=== PATIENT | female | born 2000 | race Caucasian/White ===

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

== ENCOUNTER 2021-12-09 11:27 | Emergency (ER) | payer OTHER ==
[2021-12-09 11:41] VITALS: BP 111/68; PULSE 83; TEMP 98.4; BMI 23.0
[2021-12-09] MEDS ORDERED: RALTEGRAVIR POTASSIUM 400 MG TAB PO ONE (12:14)
[2021-12-09] MEDS ORDERED: EMTRICITABINE 200MG/TENOFOVIR 300MG PO ONE (12:14)
[2021-12-09 13:25] LABS: BASO % 0.6 % (0-2.0); HEMATOCRIT 37.5 % (32.4-45.2); HEMOGLOBIN 12.7 GM/dL (10.7-15.3); MCH 28.6 pg (25.7-33.7); MCHC 33.7 g/dl (32.0-36.0); MEAN CELL VOLUME 84.9 fl (80-96); MEAN PLT VOLUME 10.6 fl (7.5-11.1); MONO % 8.1 % (3.8-10.2); NEUT % 53.3 % (42.8-82.8); PLATELET COUNT 222 10^3/uL (134-434); RBC 4.42 M/mm3 (3.60-5.2); RDW 12.8 % (11.6-15.6); WHITE BLOOD COUNT 6.2 K/mm3 (4.0-10.0)
[2021-12-09 13:32] LABS: ALBUMIN 4.1 g/dl (3.4-5.0); CALCIUM 9.1 mg/dL (8.5-10.1)
[2021-12-09 13:33] LABS: BLOOD UREA NITROGEN 11.4 mg/dL (7-18)
[2021-12-09 13:35] LABS: CREATININE 0.7 mg/dL (0.55-1.3); URIC ACID 3.5 mg/dL (2.6-7.2)
[2021-12-09 13:37] LABS: TOT PROT 7.7 g/dl (6.4-8.2)
[2021-12-09 13:38] LABS: BILIRUBIN,TOTAL 1.1 mg/dL (0.2-1)
[2021-12-09 14:28] LABS: HIV INTERPRETATION NEGATIVE (NEGATIVE)
== END 2021-12-09 13:01 | disposition home or self-care (01) ==
LOC: JERFT 11:27
DX: S61.230A Puncture wound without foreign body of right index finger without damage to nail, initial encounter (principal); W46.1XXA Contact with contaminated hypodermic needle, initial encounter
CPT/HCPCS: 36415; 80053; 82465; 82977; 83615; 84100; 84478; 84550; 84702; 85025; 86704; 86803; 87340; 87389; 87517; 99283-25

== ENCOUNTER 2022-07-05 09:12 | Emergency (ER) | payer OTHER ==
[2022-07-05 09:21] VITALS: BP 106/66; PULSE 92; RESP 18; TEMP 98; BMI 23.9
[2022-07-05 12:05] LABS: BASO % 0.5 % (0-2.0); EOS % 0.7 % (0-4.5); HEMOGLOBIN 13.9 GM/dL (10.7-15.3); MCH 27.4 pg (25.7-33.7); MEAN PLT VOLUME 10.1 fl (7.5-11.1); MONO % 5.4 % (3.8-10.2); NEUT % 63.4 % (42.8-82.8); PLATELET COUNT 224 10^3/uL (134-434); RBC 5.06 M/mm3 (3.60-5.2); RDW 13.6 % (11.6-15.6); WHITE BLOOD COUNT 7.2 K/mm3 (4.0-10.0)
[2022-07-05 12:33] LABS: ALBUMIN 4.6 g/dl (3.4-5.0); BLOOD UREA NITROGEN 13.5 mg/dL (7-18); CALCIUM 9.7 mg/dL (8.5-10.1)
[2022-07-05 12:35] LABS: CREATININE 0.8 mg/dL (0.55-1.3); URIC ACID 4.2 mg/dL (2.6-7.2)
[2022-07-05 12:36] LABS: PHOSPHOROUS 3.8 mg/dL (2.5-4.9)
[2022-07-05 12:37] LABS: TOT PROT 8.3 g/dl (6.4-8.2)
[2022-07-05 12:38] LABS: BILIRUBIN,TOTAL 0.6 mg/dL (0.2-1)
[2022-07-05 13:42] LABS: HIV INTERPRETATION NEGATIVE (NEGATIVE)
== END 2022-07-05 11:54 | disposition home or self-care (01) ==
LOC: JERFT 09:12
DX: S61.230A Puncture wound without foreign body of right index finger without damage to nail, initial encounter (principal); W46.1XXA Contact with contaminated hypodermic needle, initial encounter; Z77.21 Contact with and (suspected) exposure to potentially hazardous body fluids
CPT/HCPCS: 36415; 80053; 82465; 82977; 83615; 84100; 84478; 84550; 85025; 86704; 86803; 87340; 87389; 87517; 99283-25

== ENCOUNTER 2022-11-05 09:16 | Emergency (ER) | payer OTHER ==
[2022-11-05 09:29] VITALS: BP 118/62; PULSE 72; RESP 18; TEMP 98.2; BMI 21.9
[2022-11-05 12:02] LABS: HIV INTERPRETATION NEGATIVE (NEGATIVE)
== END 2022-11-05 10:41 | disposition home or self-care (01) ==
LOC: JERFT 09:16 → JER 09:16 → JERFT 10:41
DX: Z77.21 Contact with and (suspected) exposure to potentially hazardous body fluids (principal)
CPT/HCPCS: 36415; 84460; 86803; 87340; 87389; 99283-25

== ENCOUNTER 2024-02-23 12:24 | Emergency (ER) | payer OTHER ==
[2024-02-23 12:29] VITALS: BP 113/64; PULSE 83; RESP 18; TEMP 98.4; BMI 22.8
[2024-02-23] MEDS ORDERED: HIV POST EXPOSURE PROPHYLAXIS KIT PO ONE (13:11)
[2024-02-23 13:30] LABS: BASO % 0.7 % (0-2.0); EOS % 1.5 % (0-4.5); HEMATOCRIT 40.5 % (32.4-45.2); HEMOGLOBIN 13.7 GM/dL (10.7-15.3); LYMPH % 36.7 % (8-40); MCH 27.7 pg (25.7-33.7); MCHC 33.7 g/dl (32.0-36.0); MEAN CELL VOLUME 82.1 fl (80-96); MEAN PLT VOLUME 10.4 fl (7.5-11.1); MONO % 8.1 % (3.8-10.2); PLATELET COUNT 215 10^3/uL (134-434); RBC 4.94 M/mm3 (3.60-5.2); RDW 13.4 % (11.6-15.6); WHITE BLOOD COUNT 7.2 K/mm3 (4.0-10.0)
[2024-02-23] MEDS: HIV POST EXPOSURE PROPHYLAXIS KIT PO ONE (13:37)
[2024-02-23 13:48] LABS: POTASSIUM 3.8 mmol/L (3.5-5.1)
[2024-02-23 13:49] LABS: ALBUMIN 4.4 g/dl (3.4-5.0); CALCIUM 9.6 mg/dL (8.5-10.1)
[2024-02-23 13:52] LABS: BLOOD UREA NITROGEN 14.8 mg/dL (7-18)
[2024-02-23 13:53] LABS: CREATININE 0.8 mg/dL (0.55-1.3)
[2024-02-23 13:54] LABS: BILIRUBIN,TOTAL 0.7 mg/dL (0.2-1); TOT PROT 8.2 g/dl (6.4-8.2)
[2024-02-23 15:06] LABS: HIV INTERPRETATION NEGATIVE (NEGATIVE)
== END 2024-02-23 13:51 | disposition home or self-care (01) ==
LOC: JERFT 12:24
DX: S61.032A Puncture wound without foreign body of left thumb without damage to nail, initial encounter (principal); W46.1XXA Contact with contaminated hypodermic needle, initial encounter
CPT/HCPCS: 36415; 80053; 84702; 84703; 85025; 86704; 86803; 87340; 87389; 87517; 99283-25

== ENCOUNTER 2025-02-06 09:51 | Emergency (ER) | payer OTHER ==
[2025-02-06 10:01] VITALS: BP 103/70; PULSE 82; RESP 20; TEMP 97.6; BMI 21.4
[2025-02-06 10:55] LABS: ABSOLUTE IMMATURE GRANULOCYTES 0.01 x10^3/uL (0.0-0.031); BASOPHILS # 0.05 x10^3/uL (0.01-0.08); EOSINOPHIL % 0.8 % (0.7-5.8); EOSINOPHILS # 0.06 x10^3/uL (0.04-0.36); MCHC 32.4 g/dl (32.2-35.5); MEAN CELL VOLUME 85.9 fl (79.4-94.8); MEAN PLT VOLUME 12.6 fl (9.4-12.3); MONOCYTE # 0.51 x10^3/uL (0.24-0.86); MONOCYTE % 6.9 % (4.7-12.5); RDW 12.6 % (12.1-16.5)
[2025-02-06 11:13] LABS: GLUCOSE,RANDOM 80.0 mg/dL (74-106); TOT PROT 7.7 g/dl (6.4-8.2)
[2025-02-06 11:14] LABS: CO2 24.0 mmol/L (21-32)
[2025-02-06 11:16] LABS: ALK PHOS 55.0 U/L (40-150)
[2025-02-06 11:18] LABS: SGPT/ALT 13.0 U/L (0-55)
[2025-02-06 11:19] LABS: CREATININE 0.79 mg/dL (0.55-1.3); SGOT/AST 20.0 U/L (5-34)
[2025-02-06 11:35] LABS: HCV DIAGNOSTIC IN-HOUSE W/RFLX NON-REACTIVE (NONREACTIVE); HIV INTERPRETATION NEGATIVE (NEGATIVE)
[2025-02-06 11:36] LABS: HEPATITIS B SURF AG NON-MATERN NON-REACTIVE (NONREACTIVE)
== END 2025-02-06 10:39 | disposition home or self-care (01) ==
LOC: JERFT 09:51
DX: S61.532A Puncture wound without foreign body of left wrist, initial encounter (principal); W46.0XXA Contact with hypodermic needle, initial encounter; Y99.0 Civilian activity done for income or pay
CPT/HCPCS: 36415; 80053; 84703; 85025; 86704; 86803; 87340; 87389; 87517; 99283-25